=== PATIENT | female | born 2000 | race Caucasian/White ===

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

== ENCOUNTER 2020-10-29 14:58 | Emergency (ER) | payer OTHER | END 2020-10-29 20:22 | disposition home or self-care (01) | LOC: ERS 14:58 | DX: N93.9 Abnormal uterine and vaginal bleeding, unspecified (principal) | CPT/HCPCS: 36415; 76856; 84702 ==

== ENCOUNTER 2021-03-20 13:36 | Emergency (ER) | payer OTHER | END 2021-03-20 16:35 | disposition home or self-care (01) | LOC: ERS 13:36 | DX: H65.91 Unspecified nonsuppurative otitis media, right ear (principal) | CPT/HCPCS: 87081; 87430; 99283 ==